=== PATIENT | male | born 1975 ===

== ENCOUNTER 2018-05-17 11:35 | Emergency (ER) | payer BC ==
[2018-05-17] MEDS: ACETAMINOPHEN 325 MG TAB PO (12:04)
[2018-05-17] MEDS: ONDANSETRON (ODT) 4 MG TAB ODT (12:05)
== END 2018-05-17 13:22 | disposition home or self-care (01) ==
LOC: FTE 11:35
DX: S09.90XA Unspecified injury of head, initial encounter (principal); R51 Headache; V89.2XXA Person injured in unspecified motor-vehicle accident, traffic, initial encounter
CPT/HCPCS: 70450; 99284